=== PATIENT | male | born 1985 | race Caucasian/White ===

== ENCOUNTER 2018-06-23 14:18 | Emergency (ER) | payer SELFPAY ==
[~2018-06-23] VITALS: Ht 167.6 cm; Wt 100.0 kg
[2018-06-23 14:57] VITALS: BP 140/83
== END 2018-06-24 | disposition left against medical advice (07) ==
LOC: ER 14:57
DX: R55 Syncope and collapse (principal); R05 Cough
CPT/HCPCS: 93005; 99283